=== PATIENT | male | born 1955 | race Caucasian/White ===

== ENCOUNTER 2025-07-13 09:26 | Emergency (ER) | payer OTHER ==
--- OUTSIDE RECORDS SUMMARY | 2025-07-13 09:29 | XMS REPORT | Continuity of Care Document ---
Author Name Unknown Address [address] [facility] [address] [facility] [address] [place] [address] Organization [facility] [place] Address [address] [facility] 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 Need for hepatitis B vaccinatio n Need for hepatitis B vaccinatio n Disease Active 06-24 00:00: 00 [facility] Encounter for medical examinatio n to establish care Encounter for medical examinatio n to establish care Disease Active 06-20 00:00: 00 [facility] CVD (cardiovas cular disease) CVD (cardiovas cular disease) Disease Active 06-20 00:00: 00 [facility] Allergies, Adverse Reactions, Alerts Allergy Name Allergy Type Status Severity Reaction(s) Onset Date Inactive Date Treating Clinician Comments Source Efaviren z Propensi ty to adverse reaction s Active Other 06-26 00:00: 00 [facility] Codeine Propensi ty to adverse reaction s Active Rash 06-26 00:00: 00 [facility] Social History Social Habit Start Date Stop Date Quantity Comments Source History of tobacco use Cigarette Smoker [facility] Sexual orientation [facility] History of Social function 2025-07-02 00:00:00 2025-07-02 00:00:00 [facility] Tobacco use and exposure 2025-06-26 00:00:00 2025-06-26 00:00:00 Smokeless tobacco non-user [facility] Alcoholic beverage intake 2025-06-26 00:00:00 2025-06-26 00:00:00 Lifetime non-drinker (finding) [facility] Education - What is the highest level of school you have completed or the highest degree you have received? 2025-06-26 00:00:00 2025-06-26 00:00:00 High school graduate [facility] Sex 2025-06-18 11:46:27 2025-06-18 11:46:27 Male (finding) [facility] Sex assigned at 1955 00:00:00 1955 00:00:00 [facility] Smoking Status Start Date Stop Date Source Ex-smoker 2025-06-26 00:00:00 2025-06-26 00:00:00 [facility] Medications Ordered Medication Name Filled Medication Name Start Date Stop Date Current Medication? Ordering Clinician Indication Dosage Frequency Signature (SIG) Comments Components Source Bictegravir -Emtricitab -Tenofov (Biktarvy) 50-200-25 MG tablet tablet 06-26 00:00: 00 06-26 00:00 :00 Yes [id number] 1{tbl} QD Take 1 tablet by mouth in the morning. [facility] tiZANidine (Zanaflex) 4 MG tablet 06-20 00:00: 00 Yes [facility] atorvastati n (Lipitor) 40 MG tablet 06-19 00:00: 00 Yes [facility] clopidogrel (Plavix) 75 MG tablet 06-19 00:00: 00 Yes [facility] DULoxetine (Cymbalta) [address] capsule 06-19 00:00: 00 Yes [facility] loperamide (Imodium) 2 MG capsule 06-19 00:00: 00 Yes [facility] losartan (Cozaar) 25 MG tablet 06-19 00:00: 00 Yes [facility] metFORMIN (Glucophage ) 1000 MG tablet 06-19 00:00: 00 Yes [facility] metoprolol tartrate (Lopressor) 50 MG tablet 06-19 00:00: 00 Yes [facility] prazosin (Minipress) 1 MG capsule 06-19 00:00: 00 Yes [facility] ranolazine (Ranexa) 500 MG 12 hr tablet 06-19 00:00: 00 Yes [facility] risperiDONE (RisperDAL) 0.5 MG tablet 06-19 00:00: 00 Yes [facility] sertraline (Zoloft) 50 MG tablet 06-19 00:00: 00 Yes [facility] traZODone (Desyrel) 100 MG tablet 06-19 00:00: 00 Yes [facility] Vital Signs Vital Name Observation Time Observation Value Comments S ource Systolic blood pressure 2025-06-26 18:03:00 108 mm[Hg] [facility] Diastolic blood pressure 2025-06-26 18:03:00 69 mm[Hg] [facility] Heart rate 2025-06-26 18:03:00 65 /min [facility] Body temperature 2025-06-26 18:03:00 36.67 Shelly [facility] Respiratory rate 2025-06-26 18:03:00 20 /min [facility] Body height 2025-06-26 18:03:[address] [facility] Body weight 2025-06-26 18:03:[address] [facility] BMI 2025-06-26 18:03:00 26.81 kg/m2 [facility] Encounters Start Date/Time End Date/Time Encounter Type Admission Type Attending [facility] Facility Care Department Encounter ID Source 2025-08-07 13:15:00 2025-08-07 13:15:00 Outpatient ORESTES MATTHEWS [facility] [id number] [facility] 2025-07-03 13:15:00 2025-07-03 13:15:00 Outpatient ORESTES MATTHEWS [facility] [id number] [facility] 2025-07-02 00:00:00 2025-07-02 16:16:13 Patient Outreach Mattie Martinez [facility] [id number] [facility] 2025-06-27 00:00:00 2025-06-27 09:52:22 Patient Outreach Mattie Martinez [facility] [id number] [facility] 2025-06-26 13:00:00 2025-06-26 13:43:02 Office Visit Shanelle Orestes [facility] [id number] [facility]
--- NOTE | 2025-07-13 09:49 | EDPHYS ---
Physician Documentation [facility] Name: Juan Giron Age: 70 yrs Sex: Male : 1955 Arrival Date: 07/13/2025 Time: 09:26 Bed DIS1 Private MD: ED Physician Raciel Chambers HPI: 07/13 10:43 This 70 yrs old Male presents to ER via Ambulatory with complaints of Ear dr5 Pain. 10:43 The patient presents with pain, moderate. Onset: The symptoms/episode began/occurred 3 dr5 day(s) ago. Patient is a 62-year-old male with history depression, HIV, heart disease coming in with right ear pain and decreased hearing for the past 3 days. Patient denies fever.. Historical: - Allergies: 09:52 Sustiva; db 09:52 Codeine; db - PMHx: 09:52 Depressive disorder; HIV positive; Heart disease; db - PSHx: 09:52 BIPASS CARDIAC; db - Immunization history:: Adult Immunizations unknown. - Infectious Disease History:: Denies. - Social history:: Smoking status: Patient denies any tobacco usage or history of. ROS: 10:43 Constitutional: as per hpi dr5 Exam: 10:43 Constitutional: This is a well developed, well nourished patient who is awake, alert, dr5 and in no acute distress. Head/Face: Normocephalic, atraumatic. Eyes: Pupils equal round and reactive to light, extra-ocular motions intact. Lids and lashes normal. Conjunctiva and sclera are non-icteric and not injected. Cornea within normal limits. Periorbital areas with no swelling, redness, or edema. Neck: Trachea midline, no thyromegaly or masses palpated, and no cervical lymphadenopathy. Supple, full range of motion without nuchal rigidity, or vertebral point tenderness. No Meningismus. Chest/axilla: Normal chest wall appearance and motion. Nontender with no deformity. No lesions are appreciated. Cardiovascular: Regular rate and rhythm with a normal S1 and S2. Normal PMI, no JVD. No pulse deficits. Respiratory: Lungs have equal breath sounds bilaterally, clear to auscultation. No rales, rhonchi or wheezes noted. No increased work of breathing, no retractions or nasal flaring. Back: No spinal tenderness. No costovertebral tenderness. Full range of motion. Skin: Warm, dry with normal turgor. Normal color with no rashes, no lesions, and no evidence of cellulitis. MS/ Extremity: Pulses equal, no cyanosis. Neurovascular intact. Full, normal range of motion. Neuro: Awake and alert, GCS 15, oriented to person, place, time, and situation. Cranial nerves II-XII grossly intact. Motor strength 5/5 in all extremities. Sensory grossly intact. Cerebellar exam normal. Normal gait. 10:43 ENT: External ear(s): are unremarkable, Ear canal(s): erythema, that is moderate, of the right canal, purulent discharge, that is minimal, in the right canal, swelling, that is moderate, of the right canal, TM's: are normal, no acute changes, Examination of the other ear shows no obvious abnormality, Vital Signs: 09:40 BP 123 / 79; Pulse 73; Resp 16; Temp 98.2; Pulse Ox 99% ; Weight 86.91 kg (M); db MDM: 09:32 Medical Screening Exam initiated dr5 10:43 Differential diagnosis: otitis media, otitis externa, ruptured TM, foreign body. Data dr5 reviewed: vital signs, nurses notes. Consideration of Admission/Observation Escalation of care including admission/observation considered. Escalation considered patient found to have shingles in ear. I considered the following discharge prescriptions or medication management in the emergency department I discussed and recommended Over The Counter medications. Care significantly affected by the following chronic conditions: HIV, depression, heart disease. Care significantly affected by the following Social Determinants of Health: Poor access to healthcare and/or lack of insurance, Poor access to transportation, Problems related to employment. Counseling: I had a detailed discussion with the patient and/or guardian regarding the historical points, exam findings, and any diagnostic results supporting the discharge/admit diagnosis, the presence of at least one elevated blood pressure reading (>120/80) during this emergency department visit, the need for outpatient follow up, for definitive care, an ENT specialist, to return to the emergency department if symptoms worsen or persist or if there are any questions or concerns that arise at home. Special discussion: I discussed with the patient/guardian in detail that at this point there is no indication for admission to the hospital. It is understood, however, that if the symptoms persist or worsen the patient needs to return immediately for re-evaluation. Based on the history and exam findings, there is no indication for further emergent testing or inpatient evaluation. I discussed with the patient/guardian the need to see the ENT specialist for further evaluation of the symptoms. ED course: Will give patient Ciprodex to help with otitis externa. Recommended patient follow-up with ENT doctor for further management. Recommend increase hydration and alternate Tylenol and Motrin as needed for pain. All questions answered. Strict ER precautions given.. Administered Medications: No medications were administered Disposition Summary: 07/13/25 09:49 Discharge Ordered Notes: Location: Home dr5 Condition: Stable dr5 Diagnosis - Unspecified otitis externa, right ear dr5 Followup: dr5 - With: Emergency Department - When: As needed - Reason: Worsening of condition Followup: dr5 - With: Private Physician - When: 1 - 2 days - Reason: Recheck today's complaints, Continuance of care, Re-evaluation by your physician Discharge Instructions: - Discharge Summary Sheet dr5 - Otitis Externa dr5 Forms: - Medication Reconciliation Form dr5 - Antibiotic Education dr5 - Patient Portal Instructions dr5 - Leadership Thank You Letter dr5 Prescriptions: - Ciprodex 0.3-0.1 % Otic drops, suspension - instill 4 drops OTIC route every 12 hours for 7 days , for ears ONLY; 50 drop; dr5 Refills: 0, Product Selection Permitted Signatures: Gisel Montgomery RN RN Jan Ramirez, [employer] ARCHITECT-C [employer]OFIT ARCHITECT-Cdr5
--- NOTE | 2025-07-13 09:58 | ER ---
Nurse's Notes [facility] Name: Juan Giron Age: 70 yrs Sex: Male : 1955 Arrival Date: 07/13/2025 Time: 09:26 Bed DIS1 Private MD: Diagnosis: Unspecified otitis externa, right ear Presentation: 07/13 09:40 Risk Assessment: Do you want to hurt yourself or someone else? Patient reports no db desire to harm self or others. Onset of symptoms was July 13, 2025. 09:40 Acuity: PAULINO 4 db 09:49 Chief complaint: Patient states: RIGHT EAR PAIN X 3 DAYS GRADUALLY GETTING WORSE. db Coronavirus screen: Client denies travel out of the [place] in the last 14 days. At this time, the client does not indicate any symptoms associated with coronavirus-19. Ebola Screen: Patient negative for fever greater than or equal to 101.5 degrees Fahrenheit, and additional compatible Ebola Virus Disease symptoms Patient denies exposure to infectious person. Patient denies travel to an Ebola-affected area in the 21 days before illness onset. No symptoms or risks identified at this time. Initial Sepsis Screen: Does the patient meet any 2 criteria? Yes Does the patient have a suspected source of infection? No. Patient's initial sepsis screen is negative. 09:49 Method Of Arrival: Ambulatory db Triage Assessment: 09:40 General: Appears in no apparent distress. comfortable, Behavior is calm, cooperative. db Pain: Complains of pain in right ear. EENT: Ear canal Reports pain. Historical: - Allergies: 09:52 Sustiva; db 09:52 Codeine; db - PMHx: 09:52 Depressive disorder; HIV positive; Heart disease; db - PSHx: 09:52 BIPASS CARDIAC; db - Immunization history:: Adult Immunizations unknown. - Infectious Disease History:: Denies. - Social history:: Smoking status: Patient denies any tobacco usage or history of. Screenin:[facility] ED Fall Risk Assessment (Adult) History of falling in the last 3 months, db including since admission No falls in past 3 months (0 pts) Confusion or Disorientation No (0 pts) Intoxicated or Sedated No (0 pts) Impaired Gait No (0 pts) Mobility Assist Device Used No (0 pt) Altered Elimination No (0 pt) Score/Fall Risk Level 0 - 2 = Low Risk Oriented to surroundings, Maintained a safe environment. Abuse screen: Denies threats or abuse. Denies injuries from another. Nutritional screening: No deficits noted. Tuberculosis screening: No symptoms or risk factors identified. Assessment: 09:56 Reassessment: SEE TRIAGE FOR INITIAL ASSESSMENT. db Vital Signs: 09:40 BP 123 / 79; Pulse 73; Resp 16; Temp 98.2; Pulse Ox 99% ; Weight 86.91 kg (M); db ED Course: 09:31 Patient arrived in ED. mr 09:32 Jan Stewart FNP-C [facility]. [facility]5 09:32 Raciel Chambers MD is Attending Physician. dr5 09:40 Arm band placed on Patient placed in an exam room. db 09:49 Gisel Montgomery, RN is Primary Nurse. db 09:52 Triage completed. db 09:57 Patient has correct armband on for positive identification. Bed in low position. Call db light in reach. Side rails up X 1. Provided Education on: DISCHARGE AND FOLLOWUP. 09:57 No provider procedures requiring assistance completed. Patient did not have IV access db during this emergency room visit. Administered Medications: No medications were administered Medication: 09:57 VIS not applicable for this client. db Outcome: 09:49 Discharge ordered by . dr5 09:57 Discharged to home ambulatory, db 09:57 Condition: stable 09:57 Discharge instructions given to patient, Instructed on discharge instructions, follow up and referral plans. Prescriptions given X 1, 09:58 Patient left the ED. db Signatures: Juanita Osorio, Reg Reg mr Gisel Montgomery, RN RN db Jan Stewart FNP-C FNP-Cdr5
[2025-07-13 10:09] VITALS: BP 123/79; TEMP 98.2; O2SAT 99
== END 2025-07-13 09:58 | disposition home or self-care (01) ==
LOC: ER 09:26
DX: H60.91 Unspecified otitis externa, right ear (principal)
CPT/HCPCS: 99283